=== PATIENT | female | born 2000 | race Caucasian/White ===

== ENCOUNTER → 2025-08-12 09:31 | Outpatient (REF) | payer BC, SELFPAY ==
[2025-08-12 12:26] LABS: Beta HCG Quantitative < 2.39 mIU/ml; FSH 4.6 mIU/ml
== END ==
LOC: REG 09:31
PROVIDERS: ATTENDING PHYSICIAN Obstetrics & Gynecology; FAMILY PHYSICIAN Physician Assistant
DX: Z31.430 Encounter of female for testing for genetic disease carrier status for procreative management (principal); N91.2 Amenorrhea, unspecified
CPT/HCPCS: 36415; 81220; 81243; 82670; 83001; 83002; 84146; 84443; 84702; 86762